=== PATIENT | female | born 1960 | race Caucasian/White ===

== ENCOUNTER 2022-09-11 10:51 | Inpatient (IN) | payer BC ==
[2022-09-11 11:27] LABS: BASOPHILS % (AUTO) 0.3 %; EOSINOPHILS % (AUTO) 0.5 %; HCT - HEMATOCRIT 42.5 % (37.0-47.0); HGB - HEMOGLOBIN 15.3 g/dL (12.0-16.0); LYMPHOCYTES # (AUTO) 0.8 10^3/uL (1.5-3.5); LYMPHOCYTES % (AUTO) 11.4 %; MEAN CORPUSCULAR HEMOGLOBIN 28.1 pg (27.0-31.0); MEAN PLATELET VOLUME 9.4 fL (7.9-10.8); MONOCYTES # (AUTO) 0.7 10^3/uL (0.0-1.0); MONOCYTES % (AUTO) 9.7 %; NEUTROPHILS # (AUTO) 5.7 10^3/uL (1.5-6.6); NEUTROPHILS % (AUTO) 77.8 %; PLT - PLATELET COUNT 368 10^3/uL (130-450); RED BLOOD COUNT 5.45 10^6/uL (4.20-5.40); RED CELL DISTRIBUTION WIDTH 11.2 % (12.0-15.0); WHITE BLOOD COUNT 7.3 x10^3/uL (4.8-10.8)
[2022-09-11 11:41] LABS: ALBUMIN 4.6 g/dL (3.2-5.5); ALBUMIN/GLOBULIN RATIO 1.2 (1.0-2.2); CALCIUM 9.4 mg/dL (8.5-10.3); CREATININE 0.7 mg/dL (0.4-1.0); TOTAL PROTEIN 8.3 g/dL (6.7-8.2)
[2022-09-11 11:44] LABS: POTASSIUM 2.5 mmol/L (3.5-5.0)
[2022-09-11] MEDS ORDERED: SODIUM CHLORIDE 0.9% 1,000 ML IV STA (11:47)
--- NOTE | 2022-09-11 12:01 | XRAY Report ---
PROCEDURE: Chest 1 View X-Ray INDICATIONS: Chest pain TECHNIQUE: One view of the chest was acquired. COMPARISON: None. FINDINGS: Surgical changes and devices: Clips are present overlying the left upper quadrant. Lungs and pleura: No pleural effusions or pneumothorax. Lungs are clear. Mediastinum: Mediastinal contours appear normal. Heart size is normal. Bones and chest wall: No suspicious bony lesions. Overlying soft tissues appear unremarkable. IMPRESSION: No acute pulmonary process. Reviewed by: Eunice Kay MD on 09/11/2022 12:00 PM PDT Approved by: Eunice Kay MD on 09/11/2022 12:00 PM PDT Station ID: [id number]
[2022-09-11] MEDS ORDERED: SODIUM CHLORIDE 0.9% 500 ML IV STA (12:07)
--- NOTE | 2022-09-11 12:11 | ED Physician Documentation ---
History of Present Illness - Stated complaint Stated Complaint: WEAKNESS,RUNNY NOSE - Chief complaint Chief Complaint: General - History obtained from History obtained from: Patient - History of Present Illness Timing: Today Pain level max: 0 Pain level now: 0 - Additonal information Additional information: Patient is a 62-year-old female who states that she started Zoloft about a week ago. She states she has had decreased oral intake. Has had nausea but no vomiting. Slight epigastric discomfort. She states that she has had gastritis in the past and tried Carafate without relief. She is on hydrochlorothiazide for hypertension and has been taking this. She states that she normally has mild hyponatremia and mild hypokalemia, takes 10 mEq of potassium daily. No fevers. No chills. No diarrhea or constipation. She states that she has felt generally weak and unwell. Review of Systems Constitutional: denies: Fever, Chills Throat: denies: Sore throat Respiratory: denies: Dyspnea, Cough GI: denies: Vomiting, Diarrhea Skin: denies: Rash Musculoskeletal: denies: Neck pain, Back pain PD PAST MEDICAL HISTORY - Past Medical History Past Medical History: Yes Cardiovascular: Hypertension Psych: Depression, Anxiety - Present Medications Home Medications: Ambulatory Orders Medication Instructions Recorded Confirmed ALPRAZolam [Alprazolam] 3 - 5 tab PO DAILY PRN 09/11/22 09/11/22 Albuterol Sulfate [Proair 2 puffs PO Q4H PRN 09/11/22 09/11/22 Respiclick] Cholecalciferol (Vitamin D3) 1 cap PO DAILY 09/11/22 09/11/22 [D3-5000] Cyanocobalamin [Vitamin B-12] 1,000 mcg IM Q30D 09/11/22 09/11/22 Esomeprazole Magnesium [Nexium] 40 mg PO DAILY 09/11/22 09/11/22 Potassium Chloride [Micro-K] 1 cap PO DAILY 09/11/22 09/11/22 Sertraline [Zoloft] 1 tab PO DAILY 09/11/22 09/11/22 Sucralfate [Carafate] 10 ml PO Q6H 09/11/22 09/11/22 hydroCHLOROthiazide [Hydrodiuril] 1 cap PO DAILY 09/11/22 09/11/22 - Allergies Allergies/Adverse Reactions: Allergies Allergy/AdvReac Type Severity Reaction Status Date / Time procaine [From Novocain] Allergy Mild Edema Verified 09/11/22 17:09 acetaminophen [From Vicodin] Allergy Nausea Verified 09/11/22 11:04 clindamycin Allergy Anaphylaxis Verified 09/11/22 11:04 hydrocodone [From Vicodin] Allergy Nausea Verified 09/11/22 11:04 Penicillins Allergy Unknown Verified 09/11/22 11:04 prednisone Allergy Unknown Verified 09/11/22 11:04 - Living Situation Living Situation: reports: With family - Social History Does the pt smoke?: No - Family History Family history: reports: Non contributory PD ED PE NORMAL - Vitals Vital signs reviewed: Yes - General General: Alert and oriented X 3, No acute distress - HEENT HEENT: PERRL, Moist mucous membranes - Neck Neck: Supple, no meningeal sign - Cardiac Cardiac: RRR - Respiratory Respiratory: No respiratory distress, Clear bilaterally - Abdomen Abdomen: Soft, Non tender, Non distended - Derm Derm: Warm and dry - Extremities Extremities: No edema - Neuro Neuro: Alert and oriented X 3, chute loader 2-12 intact, No motor deficit, No sensory deficit, Normal speech Eye Opening: Spontaneous Motor: Obeys Commands Verbal: Oriented GCS Score: 15 - Psych Psych: Normal mood, Normal affect Results - Vitals Vitals: Vital Signs - 24 hr 09/11/22 09/11/22 09/11/22 10:56 12:13 14:00 Temperature 36.6 C 36.5 C Heart Rate 91 84 80 Respiratory 16 14 20 Rate Blood Pressure 150/82 H 147/82 H 140/90 H O2 Saturation 98 100 99 Oxygen O2 Source Room air - EKG (time done) 1108 EKG releavant findings:: EKG personally interpreted by author of this note. Relevant findings are: Rate: Rate (enter#) (88) Rhythm: NSR Red Bud: Normal Intervals: Normal IL QRS: Normal Ischemia: Q waves (v1-2), Other - Labs Labs: Laboratory Tests 09/11/22 09/11/22 09/11/22 11:22 11:22 11:22 WBC 7.3 RBC 5.45 H Hgb 15.3 Hct 42.5 MCV 78.0 L MCH 28.1 MCHC 36.0 RDW 11.2 L Plt Count 368 MPV 9.4 Neut # (Auto) 5.7 Lymph # (Auto) 0.8 L Kemper # (Auto) 0.7 Eos # (Auto) 0.0 Baso # (Auto) 0.0 Absolute Nucleated RBC 0.00 Nucleated RBC % 0.0 Sodium 114 L* Potassium 2.5 L* Chloride 69 L* Carbon Dioxide 31 Anion Gap 14.0 H BUN 6 Creatinine 0.7 Estimated GFR (MDRD) 85 L Glucose 142 H Calcium 9.4 Phosphorus Magnesium Total Bilirubin 1.0 AST 32 ALT 19 Alkaline Phosphatase 63 Troponin I High Sens 7.2 Total Protein 8.3 H Albumin 4.6 Globulin 3.7 Albumin/Globulin Ratio 1.2 Lipase 40 09/11/22 11:22 WBC RBC Hgb Hct MCV MCH MCHC RDW Plt Count MPV Neut # (Auto) Lymph # (Auto) Kemper # (Auto) Eos # (Auto) Baso # (Auto) Absolute Nucleated RBC Nucleated RBC % Sodium Potassium Chloride Carbon Dioxide Anion Gap BUN Creatinine Estimated GFR (MDRD) Glucose Calcium Phosphorus 2.6 Magnesium 2.0 Total Bilirubin AST ALT Alkaline Phosphatase Troponin I High Sens Total Protein Albumin Globulin Albumin/Globulin Ratio Lipase - Rads (name of study) cxr Relevant Findings:: Final report received, See rad report PD Medical Decision Making - ED course Complexity details: reviewed results, re-evaluated patient, considered differential, d/w patient ED course: 62-year-old female presents to the emergency department with feelings of generalized weakness and epigastric burning. Possible gastritis? She is found to be significantly hyponatremic. Sodium 114. Hypokalemic, potassium 2.5 and hypochloremic, 69. She has continued to take her hydrochlorothiazide even though she has not been eating and drinking very much. Does have a history of mild hyponatremia, her last visit with her PCP her sodium was 131. She does not have any neurological deficits. No altered mental status. Her chest x-ray does not show any acute abnormalities. The patient was started on normal saline. K riders were given. Magnesium is normal. Patient will be admitted for further care. Discussed the case with Dr. Gold, hospitalist who accepts This document was made in part using voice recognition software. While efforts are made to proofread this document, sound alike and grammatical errors may occur. Departure - Departure Disposition: [facility] DC/Xfer Clinical Impression: Hyponatremia, Hypokalemia, Hypochloremia Condition: Stable Discharge Date/Time: 09/11/22 16:30
[2022-09-11 12:20] LABS: PHOSPHORUS 2.6 mg/dL (2.5-4.6)
[2022-09-11] MEDS ORDERED: POTASSIUM CHLOR 10 MEQ/100 ML 10 MEQ/100 ML BAG IV STA ×2 (13:05→13:06)
[2022-09-11] MEDS ORDERED: oxyCODONE 5 MG TABLET PO PRN (14:33)
[2022-09-11] MEDS ORDERED: ACETAMINOPHEN 325 MG TABLET PO PRN (14:33)
[2022-09-11] MEDS ORDERED: ONDANSETRON ODT 4 MG TABLET TL PRN (14:33)
[2022-09-11] MEDS ORDERED: ONDANSETRON 4 MG/2 ML VIAL IVP PRN (14:33)
[2022-09-11] MEDS ORDERED: SODIUM CHLORIDE FLUSH 0.9% 10 ML SYRINGE IVP PRN (14:33)
[2022-09-11] MEDS ORDERED: SODIUM CHLORIDE 0.9% 1,000 ML IV SCH (15:00)
--- NOTE | 2022-09-11 17:19 | PHARMACY PROGRESS NOTE ---
- Best Possible Medication History Admit Date and Time: 09/11/22 1434 Processed by: Pharmacy Medication History completed: Yes Patient Interview: Completed Secondary Source(s): Pharmacy records As the person ultimately responsible for medication therapy, providers are able to order a medication from an existing home medication list in [facility] via the "Reconcile Routine" prior to Confirmation of that medication by residential direct support professional. Such practice is discouraged except when the physician, in their clinical judgment, deems that a medical need exists for a medication without regard to previous use.
[2022-09-11] MEDS: SODIUM CHLORIDE FLUSH 0.9% 10 ML SYRINGE IVP SCH ×2 (17:43→22:39)
[2022-09-11 20:41] LABS: BUN - BLOOD UREA NITROGEN < 5 mg/dL (6-20); CALCIUM 8.8 mg/dL (8.5-10.3); CARBON DIOXIDE - CO2 30 mmol/L (21-32); CHLORIDE 81 mmol/L (101-111); CREATININE 0.6 mg/dL (0.4-1.0); GFR - MDRD 102 (>89); GLUCOSE 117 mg/dL (70-100); POTASSIUM 2.6 mmol/L (3.5-5.0); SODIUM 122 mmol/L (135-145)
[2022-09-11] MEDS ORDERED: POTASSIUM CHLORIDE 20 MEQ TABLET PO ONE (21:29)
[2022-09-11] MEDS ORDERED: CYANOCOBALAMIN 1,000 MCG/ML VIAL IM ONE (21:32)
--- NOTE | 2022-09-11 21:43 | HISTORY & PHYSICAL EXAMINATION ---
Chief Complaint - Chief Complaint Chief Complaint: chest burning w GERD History of Present Illness - Admitted From Admitted From:: home - History Obtained From Records Reviewed: [facility] History obtained from: patient (PCP is Katy Powell DO in [place]) Exam Limitations: none - History of Present Illness HPI Comment/Other: She is a 62-year-old female who drinks 4 jugs of water a day, each jug 40 ounces. She is also had gastric bypass surgery for being 437 pounds. That was back in 2002. She has had chronically low sodium for years ever since she has been on hydrochlorothiazide for Mnire's disease. When she was initially treated she was given meclizine and Phenergan but it sedated her too much. One provider then gave her hydrochlorothiazide and then a second provider double the hydrochlorothiazide and added blood pressure medicines plus prednisone. With that medication combination her hematocrit became too low and she was almost passing out so all of those medications were stopped and she was given iron infusions, vitamin B12 infusions, and the only medicine renewed was hydrochlorothiazide at 12.5 mg a day. She was also given Xanax 0.5 mg tablets, up to 5 times a day. Her sodium remained at about 130 with this. She occasionally rarely takes 10 mEq of potassium a day for low K. She has been told to take Gatorade as well but she really does not like it so she takes something called Nuun tablets which are a combination of calcium, magnesium, chloride, sodium and potassium. 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 She has not been taking care of her self very well and has been skipping some of her vitamins. She has not had vitamin B12 in quite some time. She then presented to her primary care provider with these complaints of anxiety, stress, and was given Zoloft on August 2. 25 mg a day. She then unfortunately developed a URI after being at a meeting August 25 at the [facility]. So by September 04 she was on Zoloft, and having a bad you URI taking guaifenesin. She felt worse after that visit to the urgent care center. Decreasing energy, increasing fatigue, increasing nausea, and severe epigastric burning and reflux. She could not eat anything and in the last week she probably ate 2 saltine crackers. She reduced her drug intake to 2 drugs a day which was only 80 ounces a day as opposed to her usual 160 ounces a day. Her epigastric dyspepsia was increased, constant urge to burp. She wondered if she got something from her family because she is around her grandchildren all the time and this last week and they all had the flu with nausea and vomiting. Today she got up and took some Nexium and some Carafate. She had decreased burning. But she had atypical chest aching, severe weakness, and she brought herself to the emergency room. In the emergency room she was evaluated as a rule out ID with EKG and troponins. Those were negative, but her lab work showed her to have a sodium of 114 with a potassium of 2.5. As such the patient is now brought in. History - Past Medical History Cardiovascular: reports: Hypertension Respiratory: reports: Asthma, Pneumonia, Sleep apnea Neuro: reports: Other Endocrine/Autoimmune: reports: None GI: reports: GERD, Cholelithiasis, Other HAT PRESSER: reports: Other (-0-2-1. IUD removed January 2021 and no menses since) : reports: None HEENT: reports: Other (Mnire's disease with chronic tinnitus) Psych: reports: Depression, Anxiety Musculoskeletal: reports: None Derm: reports: Herpes zoster Other Past Medical History: hemiplegic migraines, pernicious anemia - Past Surgical History General: reports: Gastric surgery /HAT PRESSER: reports: Other HEENT: reports: Tonsil/Adenoidectomy Derm: reports: Other - Family & Social History Family History Comment/Other: Mom is alive at 79 with EBV infection, overweight, anxiety, does a lot of pot. Dad in his 60s but she never knew him. 3 (1/2) siblings. They are healthy except 2 of them have severe alcohol abuse issues. 1 daughter has problems with anxiety but otherwise healthy. She to has had gastric bypass surgery. Living arrangement: At home Living Situation: With family Social History Notes: From [place] and then moved to [place]. Her 7 years ago in a boating accident. His body was never found. 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 When her daughter moved to the [place] 4 years ago, and then subsequently had babies, she came to stay with her daughter temporarily to help her with the [facility] ies. She mainly works from home. Occasionally goes back [place]. She never smoked, rarely drink. Has no history of alcohol abuse. - Substance History Use: Uses substance without health or social issues: NONE Abuse: Recurrent use of substance despite neg consequences: NONE Dependence: Experiences withdrawal or developed tolerances: NONE - POLST Patient has POLST: No POLST Status: Full Code Meds/Allgy - Home Medications Home Medications: Ambulatory Orders Medication Instructions Recorded Confirmed ALPRAZolam [Alprazolam] 3 - 5 tab PO DAILY PRN 09/11/22 09/11/22 Albuterol Sulfate [Proair 2 puffs PO Q4H PRN 09/11/22 09/11/22 Respiclick] Cholecalciferol (Vitamin D3) 1 cap PO DAILY 09/11/22 09/11/22 [D3-5000] Cyanocobalamin [Vitamin B-12] 1,000 mcg IM Q30D 09/11/22 09/11/22 Esomeprazole Magnesium [Nexium] 40 mg PO DAILY 09/11/22 09/11/22 Potassium Chloride [Micro-K] 1 cap PO DAILY 09/11/22 09/11/22 Sertraline [Zoloft] 1 tab PO DAILY 09/11/22 09/11/22 Sucralfate [Carafate] 10 ml PO Q6H 09/11/22 09/11/22 hydroCHLOROthiazide [Hydrodiuril] 1 cap PO DAILY 09/11/22 09/11/22 - Allergies Allergies/Adverse Reactions: Allergies Allergy/AdvReac Type Severity Reaction Status Date / Time procaine [From Novocain] Allergy Mild Edema Verified 09/11/22 17:09 acetaminophen [From Vicodin] Allergy Nausea Verified 09/11/22 11:04 clindamycin Allergy Anaphylaxis Verified 09/11/22 11:04 hydrocodone [From Vicodin] Allergy Nausea Verified 09/11/22 11:04 Penicillins Allergy Unknown Verified 09/11/22 11:04 prednisone Allergy Unknown Verified 09/11/22 11:04 Review of Systems - Constitutional Constitutional: reports: Fatigue, Malaise, Weakness, Poor appetite - Eyes Eyes: denies: Pain, Irritation, Amaurosis, Blurred vision - Ears, Nose & Throat Ears, Nose & Throat: reports: Tinnitus, Vertigo, Nasal obstruction, Nasal congestion, Postnasal drainage - Cardiovascular Cariovascular: reports: Chest pain, Decr. exercise tolerance. denies: Irregular heart rate, Palpitations, Edema, Syncope, Exertional dyspnea - Respiratory Respiratory: reports: Cough, Wheezing, Snoring, SOB with exertion, Apnea. denies: Sputum production - Gastrointestinal Gastrointestinal: reports: Abdominal pain, Nausea. denies: Abdominal distention, Constipation, Diarrhea, Change in bowel habits, Vomiting, Bile emesis, Sean blood emesis - Genitourinary Genitourinary: denies: Dysuria, Frequency, Urgency, Incontinence - Musculoskeletal Musculoskeletal: denies: Muscle pain, Back pain, Muscle aches, Stiffness - Integumentary Integumentary: denies: Rash, Pruritis, Lesions - Neurological Neurological: reports: General weakness, Headache, Dizziness, Other (Foggy brain this last week). denies: Focal weakness, Memory problems, Pre-existing deficit, Abnormal gait, Seizures, Incoordination, Slurred speech - Psychiatric Psychiatric: reports: Depression, Anxiety. denies: Suicidal, Delusions, Hallucinations - Endocrine Endocrine: denies: Polyuria, Polydypsia, Polyphagia - Hematologic/Lymphatic Hematologic/Lymphatic: reports: Anemia. denies: Bruising, Petechiae, Blood clots, Lymphadenopathy Prior Level of Functionality: Completely independent with activities of daily living, drives a car, pays bills, takes care of children and household Exam - Vital Signs Reviewed Vital Signs: Yes Vital Signs: Vital Signs x48h Temp Pulse Pulse Resp BP BP Pulse Ox 09/11/22 20:02 36.6 C 77 96 H 138/68 H 24 L 09/11/22 16:30 36.7 C 90 16 146/69 H 98 09/11/22 16:00 36.8 C 96 18 124/65 99 09/11/22 14:00 80 20 140/90 H 99 - Physical Exam General Appearance: positive: Alert, Other (Oriented white female who looks stated age, teeth veneers in place, complains of mouth dryness) Eyes Bilateral: positive: PERRL, EOMI ENT: positive: Other (Reddening of bridge of nose, and butterfly pattern on cheeks that she has had for 2 to 3 days now) Neck: positive: No JVD. negative: Stiff neck Respiratory: positive: No respiratory distress. negative: Wheezes, Rales, Rhonchi Cardiovascular: positive: Regular rate & rhythm, Systolic murmur Peripheral Pulses: positive: 1+ Abdomen: positive: No organomegaly, Nml bowel sounds, No distention Skin: positive: Warm, Dry Extremities: positive: Full ROM, No pedal edema Neurologic/Psychiatric: positive: Oriented x3, CN's nml (2-12), Motor nml Conclusion/Plan - Problem List (1) Hyponatremia Conclusion/Plan: She appears to have hyponatremia from probable use of long-term hydrochlorothiazide as well as 160 ounces of water a day. She was compensated with that, and took supplements for not only her sodium but her potassium. She then developed probable nausea or side effects of the Zoloft. SSRIs and of themselves can give you hyponatremia. And so now she has 3 reasons to have hyponatremia followed by the fourth which was lack of p.o. intake. No diarrhea, no emesis. Plan: Inpatient status since I have to slowly increase her potassium by no more than 8 mEq a day. I have explained to her why. 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 Water restriction to 1000 cc/day which is distressing to her so I will allow swish and spit of water for dry mouth Normal saline at 100 cc an hour I will not resume her Zoloft or hydrochlorothiazide at this time. I do anticipate resuming her hydrochlorothiazide when she is through this acute episode of hyponatremia. Check BMP every 6-8 hours (2) Hypokalemia Conclusion/Plan: Long-term chronic hypokalemia as well. She takes 10 mEq supplements at home. She is already received 1 supplement in the emergency room, and I will give her another 20 mill equivalent supplement for the repeat potassium of 2.6. We will maintain potassium supplements during her stay since that is what she does at home. I do not think I want a give her the slurry since she is already very nauseated. KDur would be contraindicated in gastric bypass surgery patient but I will have them a nurse melt it in applesauce and take it that way. (3) Vitamin B12 deficiency anemia after gastrectomy Conclusion/Plan: She says she is gotten behind in the last few weeks. She has not had a B12 injection for a while. As such I will give her 1000 mg subcu today (4) Benzodiazepine dependence, continuous Conclusion/Plan: She takes up to 5 benzodiazepine tablets a day for Generalized Anxiety Disorder. She is done that for quite some time for her generalized anxiety disorder. I do worry about withdrawal so I will give her 0.5 mg tablets, every 4 hours as needed. If she is not able to keep these tablets down, I will switch her over to intravenous benzodiazepine to avoid withdrawal. (5) GERD (gastroesophageal reflux disease) Conclusion/Plan: Complains of burping, belching, increasing dyspepsia. She says those have improved with the Nexium she took today as well as the Carafate. I will continue with Protonix IV until she is taking p.o. well. Qualifiers: Esophagitis presence: esophagitis presence not specified Qualified Code(s): K21.9 - Gastro-esophageal reflux disease without esophagitis (6) Status post gastric bypass for obesity Conclusion/Plan: Substantial weight loss. She is to be 437 pounds. She describes attention to her diet with 80 to 90 g of protein a day, vitamin supplements with calcium, magnesium but lately missing her B12. I will have nutrition consult for her tomorrow. (7) URI (upper respiratory infection) Conclusion/Plan: Now on the weaning phase. Main problem is a tickle in the throat from the postnasal drip and a spasmodic cough. She would like albuterol to treat that to have ordered albuterol via nebulizer every 4 hours as needed cough Qualifiers: URI type: unspecified viral URI Qualified Code(s): J06.9 - Acute upper respiratory infection, unspecified (8) Malar rash Conclusion/Plan: Check sed rate and [facility] tomorrow - Lab Results Lab results reviewed: Yes Fish Bones: 09/11/22 11:22 09/11/22 20:19 - Diagnostic Imaging Results Diagnostic Imaging Results: positive: Final report reviewed Diagnostic Imaging Results Comments: Chest x-ray is without acute cardiopulmonary process - EKG Results EKG Interpreted Independently: Yes EKG Comparison: No prior EKG EKG Findings: EKG is normal sinus rhythm. PVCs seen. Nonspecific ST-T wave changes. No acute diagnostic changes of acute ischemia Core Measures - Anticipated LOS I expect patient to be DC'd or transferred within 96 hours.: Yes - DVT/VTE - Prophylaxis VTE/DVT Prophylaxis med ordered at admit?: Yes
[2022-09-11] MEDS ORDERED: PANTOPRAZOLE 40 MG VIAL IVP ONE (22:00)
[2022-09-11] MEDS ORDERED: ALBUTEROL NEB 2.5 MG/3 ML INH PRN (22:09)
[2022-09-11] MEDS: ALPRAZolam 0.25 MG TABLET PO PRN (22:39)
[2022-09-12 05:22] LABS: BASOPHILS % (AUTO) 0.3 %; EOSINOPHILS # (AUTO) 0.1 10^3/uL (0.0-0.7); EOSINOPHILS % (AUTO) 1.3 %; HCT - HEMATOCRIT 37.9 % (37.0-47.0); LYMPHOCYTES # (AUTO) 1.1 10^3/uL (1.5-3.5); LYMPHOCYTES % (AUTO) 15.7 %; MEAN CORPUSCULAR HGB CONC 36.9 g/dL (32.0-36.0); MEAN CORPUSCULAR VOLUME 78.5 fL (81.0-99.0); MEAN PLATELET VOLUME 9.3 fL (7.9-10.8); MONOCYTES # (AUTO) 0.9 10^3/uL (0.0-1.0); MONOCYTES % (AUTO) 12.9 %; NEUTROPHILS # (AUTO) 4.7 10^3/uL (1.5-6.6); NEUTROPHILS % (AUTO) 69.7 %; PLT - PLATELET COUNT 329 10^3/uL (130-450); RED BLOOD COUNT 4.83 10^6/uL (4.20-5.40); RED CELL DISTRIBUTION WIDTH 11.4 % (12.0-15.0); WHITE BLOOD COUNT 6.7 x10^3/uL (4.8-10.8)
[2022-09-12 05:38] LABS: CALCIUM 9.1 mg/dL (8.5-10.3); CREATININE 0.5 mg/dL (0.4-1.0)
[2022-09-12 05:40] LABS: POTASSIUM 2.3 mmol/L (3.5-5.0)
[2022-09-12] MEDS ORDERED: DEXTROSE 5% 250 ML IV SCH (06:00)
[2022-09-12] MEDS ORDERED: POTASSIUM CHLORIDE 20 MEQ TABLET PO ONE (06:01)
--- NOTE | 2022-09-12 06:09 | PROVIDER PROGRESS NOTE ---
Auxiliary Operator Note - Auxiliary Operator Note Auxiliary Operator Note: RN paged to report Na 126. Patient was 114 yesterday. K was 2.3 H&P reviewed and it seems hctz + over hydration is the cause of the hypoNa tanisha give stat D5W 250ml iv bolus and monitor Na level. Goal is 122. Patient was theoretically already at threshold since 2019 last night however not sure if RN paged about the sudden rise in Na. continue checking Na. consider DDAVP if Na continue to rise replete K and recheck Consuelo Marroquin DO Internal Medicine [employer] Tele Auxiliary Operator
[2022-09-12] MEDS: PANTOPRAZOLE 40 MG VIAL IVP SCH (06:49)
[2022-09-12] MEDS: ALPRAZolam 0.25 MG TABLET PO PRN ×4 (07:00→21:21)
[2022-09-12] MEDS: POTASSIUM CHLOR 10 MEQ/100 ML 10 MEQ/100 ML BAG IV SCH ×6 (10:13→21:51)
[2022-09-12] MEDS: ENOXAPARIN 40 MG/0.4 ML SYRINGE SUBQ SCH (10:13)
[2022-09-12] MEDS: SODIUM CHLORIDE FLUSH 0.9% 10 ML SYRINGE IVP SCH ×2 (10:17→17:32)
[2022-09-12] MEDS: SODIUM CHLORIDE 0.9% 250 ML IV PRN ×2 (10:33→20:09)
[2022-09-12] MEDS: HYDROCORTISONE 1% CREAM 28 GM TUBE TOP SCH ×3 (11:32→20:13)
[2022-09-12 18:07] LABS: CALCIUM 8.8 mg/dL (8.5-10.3); CREATININE 0.6 mg/dL (0.4-1.0); POTASSIUM 3.4 mmol/L (3.5-5.0)
--- NOTE | 2022-09-12 21:25 | PROVIDER PROGRESS NOTE ---
Progress Note August 9:15 PM She is still a little dizzy, lightheaded. Feels like she is developing a postnasal drip, slightly scratchy sore throat. Worried that she is getting a sinus infection. But there is no fevers, no hot flashes, no swollen lymph glands. She and her nurse wondered if she was orthostatic and they did orthostatic vital signs, and she is not orthostatic. She has been receiving potassium riders, when gets 250 cc of normal saline over the course of the day since yesterday evening. I stopped her normal saline last night once her sodium started increasing. Exam: Temperature 36.7. Heart rate 69. Blood pressure 112/62. Respirations 20. 96% on room air. Fatigued appearing, slightly hoarse voice female who looks her stated age. Well-nourished, well-developed. No acute distress. Lungs are clear Regular rate and rhythm Abdomen soft nontender Extremities have large arms and legs but no edema Labs: sodium started at 114, and was 122 by last night. This morning she was 126. This evening she is 128. Potassium started at 2.5 in the ED, and I did start oral supplementation but was not successful. She was 2.3 this morning and asked that I switch her to potassium riders IV. This afternoon potassium is now 3.4. Assessment/plan 1. Hyponatremia. Hyponatremia from probable long use of hydrochlorothiazide, 160 ounces of water a day, nausea with decreased p.o. intake, and then finally Zoloft. She is responding to free water restriction, and a temporary use of normal saline. At 6 AM this morning she received 250 cc of D5 to avoid a too quick of a rise of sodium. This morning she was 126. This evening she is 128. So she has risen 14 mmol in 36 hours. She is getting 20 cc of normal saline right now. Continue the free water restriction, 20 cc an hour of normal saline. She is encouraged to get out of bed. I was hoping to discharge her tomorrow but she protest a little bit and says that she just feels "too weak and lightheaded" to do so. Orthostatic vital signs show no change in blood pressure. I reassured her that I think she should be able to go home tomorrow if her sodium is normal. I did offer her possible evaluation for respite care to nursing home facility if she feels that it is too alarming to go home, but she feels that she can go stay with her daughter. 2. Hypokalemia. She has a gastric bypass surgery history. I wonder if there is malabsorption at the small bowel. Treatment in the outpatient setting is 10 mEq potassium at home a day. Currently getting IV potassium supplementation. Repeat potassium is responding. Hopefully she can transition to oral potassium by tomorrow morning. 3. Vitamin B12 deficiency anemia after gastric bypass surgery. Given 1000 mg IM on September 11 of vitamin B12 4. Benzodiazepine dependence, continuous. On her home dose of half a milligram of alprazolam every 4 hours as needed and is stable with that. 5. Postnasal drip. Most likely secondary to URI. I do not anticipate changing medications at this time which is albuterol as needed, and we will find a throat lozenge for her. She is allergic to Cetacaine spray. 6. Malar rash last night. Much more faded today. Sed rate is 5. PARADISE has been drawn and sent to outside lab.
[2022-09-13] MEDS: POTASSIUM CHLOR 10 MEQ/100 ML 10 MEQ/100 ML BAG IV SCH ×2 (00:04→02:09)
[2022-09-13] MEDS: SODIUM CHLORIDE FLUSH 0.9% 10 ML SYRINGE IVP SCH ×2 (02:20→11:39)
[2022-09-13] MEDS: ALPRAZolam 0.25 MG TABLET PO PRN ×4 (02:20→15:50)
[2022-09-13] MEDS: PANTOPRAZOLE 40 MG VIAL IVP SCH (06:51)
[2022-09-13 08:04] LABS: CALCIUM 8.7 mg/dL (8.5-10.3); CREATININE 0.6 mg/dL (0.4-1.0); POTASSIUM 3.6 mmol/L (3.5-5.0)
[2022-09-13] MEDS: ENOXAPARIN 40 MG/0.4 ML SYRINGE SUBQ SCH (09:20)
--- NOTE | 2022-09-13 10:52 | Discharge Plan ---
Discharge Plan Problem Reviewed?: Yes Disposition: Home, Self Care Condition: Stable Prescriptions: Sodium Chloride [Salt Tab] 1 gm PO DAILY #30 tablet Diet: Regular Activity Restrictions: Activity as Tolerated Shower Restrictions: No Driving Restrictions: No Health Concerns: You presented yourself to our emergency room because of profound weakness. You are a gastric bypass patient who started drinking 160 ounces of water because of a upper respiratory tract infection causing tickling and postnasal drip in the back of your throat. Your baseline drinking is about 120 ounces of water a day. You already have chronic hyponatremia because of hydrochlorothiazide. Then you were started on Zoloft for anxiety. Serotonin reuptake inhibitors such as Zoloft are the leading cause of hyponatremia in clinics across the country. When you were evaluated in the emergency room from your profound weakness, we found your sodium to be dangerously low at 114. Normal is 135. In looking at your PCP chart on your phone, the emergency room doctor says you are chronically hyponatremic at approximately 130. You had free water restriction placed upon you. And we gave you salt water infusions. We would start and stop the infusion depending on how fast your sodium was rising. Your sodium is finally acceptable and at your baseline of 132 today. We feel you are now ready for discharge. You do have a concern that you feel weak, and the postnasal drip is causing you alarm, and we did offer you placement for respite in a [facility] but feel that you will do better with your daughter's care. As such you will go to your daughter's house. Plan of Treatment: 1. Please see your primary care provider in follow-up in the next 1 to 2 weeks. You would need a BMP drawn to recheck your sodium and potassium. 2. You describe a chronic low sodium and a chronic low potassium. Some of this may be from your gastric bypass effects, the hydrochlorothiazide you take for your Mnire's, and overuse of water. But in any case, ask your primary care provider if you are a candidate for getting your blood work checked every 2 months to then get a liter or 2 of normal saline with potassium infused to you on a regular basis. 3. I am prescribing some salt tablets to take on a temporary basis until you reach a good balance for yourself. Care Goals: To resume work by next Saturday. To regain your energy levels. And to get over this cold Assessment: Patient is alert, oriented, not confused, able to complete activities of daily living while in the hospital No Smoking: If you smoke, Please STOP! Call for help. Follow-up with: Provider,Other [Primary Care Provider] -
--- NOTE | 2022-09-13 11:16 | DISCHARGE SUMMARY ---
"Discharge Summary Admit Date: 09/11/22 Discharge Date: 09/13/22 Discharging Provider: Socorro Gold MD Primary Care Provider: Katy Powell DO Code Status: Attempt Resuscitation Condition at Discharge: Stable Discharge Disposition: 01 Home, Self Care - DIAGNOSES Discharge Diagnoses with Status of Each Condition: 1. Hyponatremia 2. Water intoxication 3. Mnire's disease 4. Hydrochlorothiazide adverse reaction 5. Hypokalemia 6. URI with cough and congestion 7. Vitamin B12 deficiency after gastric bypass surgery 8. Benzodiazepine dependence, continuous 9. GERD 10. Status post gastric bypass surgery for obesity 11. Malar rash 12. Generalized anxiety disorder - HPI History of Present Illness: She is a 62-year-old female who drinks 4 jugs of water a day, each jug 40 ounces. She is also had gastric bypass surgery for being 437 pounds. That was back in 2002. She has had chronically low sodium for years ever since she has been on hydrochlorothiazide for Mnire's disease. When she was initially treated she was given meclizine and Phenergan but it sedated her too much. One provider then gave her hydrochlorothiazide and then a second provider double the hydrochlorothiazide and added blood pressure medicines plus prednisone. With that medication combination her hematocrit became too low and she was almost passing out so all of those medications were stopped and she was given iron infusions, vitamin B12 infusions, and the only medicine renewed was hydrochlorothiazide at 12.5 mg a day. She was also given Xanax 0.5 mg tablets, up to 5 times a day. Her sodium remained at about 130 with this. She occasionally rarely takes 10 mEq of potassium a day for low K. She has been told to take Gatorade as well but she really does not like it so she takes something called Nuun tablets which are a combination of calcium, magnesium, chloride, sodium and potassium. 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 She has not been taking care of her self very well and has been skipping some of her vitamins. She has not had vitamin B12 in quite some time. She then presented to her primary care provider with these complaints of anxiety, stress, and was given Zoloft on August 2. 25 mg a day. She then unfortunately developed a URI after being at a meeting August 25 at the [facility]. So by September 04 she was on Zoloft, and having a bad you URI taking guai fenesin. She felt worse after that visit to the urgent care center. Decreasing energy, increasing fatigue, increasing nausea, and severe epigastric burning and reflux. She could not eat anything and in the last week she probably ate 2 saltine crackers. She reduced her drug intake to 2 drugs a day which was only 80 ounces a day as opposed to her usual 160 ounces a day. Her epigastric dyspepsia was increased, constant urge to burp. She wondered if she got something from her family because she is around her grandchildren all the time and this last week and they all had the flu with nausea and vomiting. Today she got up and took some Nexium and some Carafate. She had decreased burning. But she had atypical chest aching, severe weakness, and she brought herself to the emergency room. In the emergency room she was evaluated as a rule out [place] with EKG and troponins. Those were negative, but her lab work showed her to have a sodium of 114 with a potassium of 2.5. As such the patient is now brought in. - Past Medical History Cardiovascular: reports: Hypertension Respiratory: reports: Asthma, Pneumonia, Sleep apnea Neuro: reports: Other Endocrine/Autoimmune: reports: None GI: reports: GERD, Cholelithiasis, Other WELDING SPECIALIST: reports: Other (-0-2-1. IUD removed January 2021 and no menses since) : reports: None HEENT: reports: Other (Mnire's disease with chronic tinnitus) Psych: reports: Depression, Anxiety Musculoskeletal: reports: None Derm: reports: Herpes zoster Other Past Medical History: hemiplegic migraines, pernicious anemia - Past Surgical History General: reports: Gastric surgery /WELDING SPECIALIST: reports: Other HEENT: reports: Tonsil/Adenoidectomy Derm: reports: Other - CONSULTS | PROCEDURES Procedures: Chest x-ray is without any acute cardiopulmonary process. - HOSPITAL COURSE Hospital Course: Very anxious lady that will become very focused on a single symptom and needs quite a bit of reassurance that she is okay. Overall I think she has hyponatremia from chronic hydrochlorothiazide use, water intoxication, and then the final piece was an SSRI. I do not know if her history of gastric bypass surgery has any effect on her absorption as well. With remnants of large body habitus. Arms and legs are quite large. once fluids were restricted, and she r eceived normal saline, and was taken off her SSRI sodium slowly juan in an expected and excepted level. If sodium became too high, she received D5 temporarily. She was also hypokalemic and that was normal by discharge after supplementation. She was reinstructed on water intake. I have asked her to stop drinking 160 ounces a day and to go back down to maybe 80 ounces a day. She needs to discuss with her primary care provider treatment of her anxiety with something possibly other than an SSRI. The hydrochlorothiazide is used on a chronic basis because of her history of Mnire's. She appears to have the remnants of a URI with postnasal drip, slight tickle in her throat. Slight dry cough. But it was not severe during her stay.When she was first admitted, she had a bright red malar rash of the cheeks on the second day. But that resolved and has not been present since. Analyzer was done and negative. She is discharged in stable condition on a temperature of 36.8. Heart rate 83. Blood pressure 118/61. Respirations 18. 97% on room air. She is an alert oriented female but she is 5 feet 5 inches tall and weighs 75.5 kg. She has diminished breath sounds at the bases but no respiratory distress. Regular rate and rhythm. And abdomen that soft, nontender, normal bowel sounds. Extremities have no edema. At discharge sodium is 132. In looking at her old records on care everywhere, her sodium is 130. Potassium is 3.6. Greater than 30 minutes was spent coordinating discharge. This document was made in part using voice recognition software. While efforts are made to proofread this document, sound alike and grammatical errors may occur. - ALLERGIES Allergies/Adverse Reactions: Allergies Allergy/AdvReac Type Severity Reaction Status Date / Time procaine [From Novocain] Allergy Mild Edema Verified 09/11/22 17:09 acetaminophen [From Vicodin] Allergy Nausea Verified 09/11/22 11:04 clindamycin Allergy Anaphylaxis Verified 09/11/22 11:04 hydrocodone [From Vicodin] Allergy Nausea Verified 09/11/22 11:04 Penicillins Allergy Unknown Verified 09/11/22 11:04 prednisone Allergy Unknown Verified 09/11/22 11:04 - MEDICATIONS Home Medications: Ambulatory Orders Medication Instructions Recorded Confirmed ALPRAZolam [Alprazolam] 3 - 5 tab PO DAILY PRN 09/11/22 09/11/22 Albuterol Sulfate [Proair 2 puffs PO Q4H PRN 09/11/22 09/11/22 Respiclick] Cholecalciferol (Vitamin D3) 1 cap PO DAILY 09/11/22 09/11/22 [D3-5000] Cyanocobalamin [Vitamin B-12] 1,000 mcg IM Q30D 09/11/22 09/11/22 Esomeprazole Magnesium [Nexium] 40 mg PO DAILY 09/11/22 09/11/22 Potassium Chloride [Micro-K] 1 cap PO DAILY 09/11/22 09/11/22 Sucralfate [Carafate] 10 ml PO Q6H 09/11/22 09/11/22 hydroCHLOROthiazide [Hydrodiuril] 1 cap PO DAILY 09/11/22 09/11/22 Sodium Chloride [Salt Tab] 1 gm PO DAILY #30 tablet 09/13/22 - LABS Result Diagrams: 09/12/22 05:01 09/13/22 07:50"
[2022-09-13] MEDS: HYDROCORTISONE 1% CREAM 28 GM TUBE TOP SCH (11:35)
[2022-09-13 13:45] VITALS: BP 118/61
[2022-09-13 17:08] LABS: ANTI-DNA (DS) AB QN <1 IU/mL (0-9); CENTROMERE B ANTIBODIES <0.2 AI (0.0-0.9); CHROMATIN ANTIBODIES <0.2 AI (0.0-0.9); JO-1 AB <0.2 AI (0.0-0.9); RIBOSOMAL P ANTIBODIES <0.2 AI (0.0-0.9); RNP ANTIBODIES <0.2 AI (0.0-0.9); SCLERODERMA-70 ANTIBODIES <0.2 AI (0.0-0.9); SJOGREN'S ANTI-SS-A <0.2 AI (0.0-0.9); SJOGREN'S ANTI-SS-B <0.2 AI (0.0-0.9); SMITH ANTIBODIES <0.2 AI (0.0-0.9); SMITH/RNP ANTIBODIES <0.2 AI (0.0-0.9)
[2022-09-14] MEDS ORDERED: PANTOPRAZOLE 40 MG TABLET PO SCH (07:00)
== END 2022-09-13 16:08 | disposition home or self-care (01) | DRG 641 ==
LOC: ED 10:51 → MS2 14:33
PROVIDERS: ADMIT Specialist; ATTEND Specialist
DX: E87.1 Hypo-osmolality and hyponatremia (principal); F13.20 Sedative, hypnotic or anxiolytic dependence, uncomplicated; E87.79 Other fluid overload; H81.09 Meniere's disease, unspecified ear; E87.6 Hypokalemia; J06.9 Acute upper respiratory infection, unspecified; E53.8 Deficiency of other specified B group vitamins; K21.9 Gastro-esophageal reflux disease without esophagitis; Z98.84 Bariatric surgery status; F41.9 Anxiety disorder, unspecified; R21 Rash and other nonspecific skin eruption; R63.0 Anorexia; Z68.28 Body mass index [BMI] 28.0-28.9, adult; T50.2X5A Adverse effect of carbonic-anhydrase inhibitors, benzothiadiazides and other diuretics, initial encounter; R53.1 Weakness
CPT/HCPCS: 36415; 71045; 80048; 80053; 83516; 83690; 83735; 84100; 84484; 85025; 85651; 86225; 86235; 93005; 94640; 99284; 99285; A9270; J1650

== ENCOUNTER 2023-04-25 14:27 | Outpatient (CLI) | payer BC ==
[2023-04-25 18:01] LABS: BASOPHILS # (AUTO) 0.1 10^3/uL (0.0-0.1); BASOPHILS % (AUTO) 0.7 %; EOSINOPHILS # (AUTO) 0.2 10^3/uL (0.0-0.7); EOSINOPHILS % (AUTO) 2.3 %; HCT - HEMATOCRIT 43.3 % (37.0-47.0); HGB - HEMOGLOBIN 14.5 g/dL (12.0-16.0); LYMPHOCYTES # (AUTO) 1.8 10^3/uL (1.5-3.5); LYMPHOCYTES % (AUTO) 23.8 %; MEAN CORPUSCULAR HEMOGLOBIN 28.7 pg (27.0-31.0); MEAN CORPUSCULAR HGB CONC 33.5 g/dL (32.0-36.0); MEAN CORPUSCULAR VOLUME 85.6 fL (81.0-99.0); MEAN PLATELET VOLUME 10.5 fL (7.9-10.8); MONOCYTES # (AUTO) 0.6 10^3/uL (0.0-1.0); MONOCYTES % (AUTO) 8.4 %; NEUTROPHILS # (AUTO) 4.8 10^3/uL (1.5-6.6); NEUTROPHILS % (AUTO) 64.5 %; PLT - PLATELET COUNT 322 10^3/uL (130-450); RED BLOOD COUNT 5.06 10^6/uL (4.20-5.40); RED CELL DISTRIBUTION WIDTH 12.9 % (12.0-15.0); WHITE BLOOD COUNT 7.4 x10^3/uL (4.8-10.8)
[2023-04-25 18:27] LABS: CALCIUM 10.7 mg/dL (8.5-10.3); CREATININE 0.8 mg/dL (0.6-1.3); POTASSIUM 3.5 mmol/L (3.5-4.5)
[2023-04-25 18:35] LABS: FERRITIN 72.8 ng/mL (11.0-306.8)
== END 2023-04-25 14:28 | disposition home or self-care (01) ==
LOC: LAB.N 14:27
DX: Z86.2 Personal history of diseases of the blood and blood-forming organs and certain disorders involving the immune mechanism (principal); E87.1 Hypo-osmolality and hyponatremia
CPT/HCPCS: 36415; 80048; 82607; 82728; 82746; 83540; 84466; 85025